=== PATIENT | female | born 1950 | race Caucasian/White ===

== ENCOUNTER 2019-12-29 09:41 | Outpatient (CLI) | payer MEDICARE, SELFPAY ==
--- NOTE | ~2019-12-29 | NM_ITS ---
EXAMINATION: NM bony stress w perfusion DATE: 12/29/2019 13:06 INDICATION: Hyperlipidemia and hypertension for preoperative evaluation TECHNIQUE: Rest images were obtained following intravenous administration of 8 mCi Tc99m tetrofosmin (Myoview). The patient was infused intravenously with Lexiscan (Regadenoson). Then, 25.6 mCi Tc99m te trofosmin (Myoview) was administered intravenously, and stress images were obtained. Data was reconst ructed into short axis and horizontal and vertical long axis SPECT images. Gated SPECT images were al so obtained. COMPARISON: None. FINDINGS: There is no definite reversible or fixed perfusion abnormality to suggest ischemia or infar ction. There is normal left ventricular chamber size, wall motion and ejection fraction. Left ventr icular ejection fraction measures >70%. IMPRESSION: 1. Normal myocardial perfusion at rest and during stress. 2. Left ventricular ejection fraction measuring >70%. Reviewed, dictated and finalized at location A.
--- NOTE | 2019-12-29 10:29 | EST_ITS ---
Patient Info Name: Kelsey Ashford Age: 69 years : 1950 Gender: Female Ht: 66 in Wt: 180 lbs BSA: 1.97 m2 Exam Date: 12/29/2019 11:04 AM Exam Location: [facility] Stress Patient Status: Outpatient Admit Date: 12/29/2019 Staff Ordering Physician: Nelly Rivera NP Attending Provider: Nelly Rivera NP Exercise Technologist: Jovita Manzano RDCS Exercise Physician: Clyde Rojas DO Exam Type: CA stress bony w NM Study Info Indications Z01.818 - Encounter for other preprocedural examination A regadenoson stress test was performed. Summary 1. 1. Abnormal lexiscan stress test for ischemic ST changes by ECG criteria. 2. 2. Baseline hypertension. 3. 3. Nuclear scan to follow and will be reporrted separately. Please correlate with it. 4. 4. Patient informed of the above results. Protocol: Lexiscan Stress ECG Details Stage: REST Duration (min): 7 min : 47 sec HR (bpm): 66 SBP (mmHg): 181 DBP (mmHg): 103 Stage: REST Duration (min): 13 min : 3 sec HR (bpm): 69 SBP (mmHg): 181 DBP (mmHg): 103 Stage: STAGE 1 Duration (min): 0 min : 59 sec HR (bpm): 88 SBP (mmHg): 167 DBP (mmHg): 90 Stage: RECOVERY Duration (min): 1 min : 0 sec HR (bpm): 103 SBP (mmHg): 165 DBP (mmHg): 93 Stage: RECOVERY Duration (min): 2 min : 0 sec HR (bpm): 97 SBP (mmHg): 165 DBP (mmHg): 93 Stage: RECOVERY Duration (min): 3 min : 0 sec HR (bpm): 93 SBP (mmHg): 172 DBP (mmHg): 94 Stage: RECOVERY Duration (min): 3 min : 23 sec HR (bpm): 87 SBP (mmHg): 172 DBP (mmHg): 94 Rest HR: 69 bpm Peak HR: 107 bpm Rest Sys BP: 181 mmHg Peak Sys BP: 172 mmHg Max Pred HR: 149 bpm % Max Pred HR: 72 % Target HR: 127 bpm Max RPP: 18,404 bpm*mmHg Termination Reason: Completed protocol Cardiac Symptoms: Chest discomfort Total Time: 1 min : 0 sec Rest Read BP: 103 mmHg Peak Read BP: 94 mmHg Total Dose: 0.4 mg Resting ECG Sinus rhythm. Stress ECG [address]-T wave depression in II, III, avF. Arrhythmias None. Report Signatures
== END 2019-12-29 09:42 | disposition home or self-care (01) ==
PROVIDERS: PCP Nurse Practitioner; Visit Provider Nurse Practitioner
DX: Z01.810 Encounter for preprocedural cardiovascular examination (principal); I10 Essential (primary) hypertension; E78.5 Hyperlipidemia, unspecified; R94.39 Abnormal result of other cardiovascular function study
CPT/HCPCS: 78452; 93017; A9502; J2785

== ENCOUNTER 2020-01-28 10:30 | Outpatient (CLI) | payer MEDICARE, SELFPAY ==
--- NOTE | ~2020-01-28 | US_ITS ---
EXAMINATION: US venous doppler LE RT DATE: 01/28/2020 11:10 INDICATION: Right lower limb swelling post recent hip surgery. TECHNIQUE: Grayscale ultrasound images without and with compression and Doppler ultrasound images of the right lower extremity veins were obtained. COMPARISON: None. FINDINGS: The visualized portions of right common femoral vein, profunda (deep) femoral vein, femoral vein, pop liteal vein, peroneal trunk, posterior tibial veins, peroneal veins, gastrocnemius vein and greater s aphenous vein outflow are patent. IMPRESSION: 1. No deep venous thrombosis in the right lower limb. Reviewed, dictated and finalized at location B.
== END 2020-01-28 10:31 | disposition home or self-care (01) ==
PROVIDERS: PCP Nurse Practitioner; Visit Provider Orthopaedic Surgery
DX: M79.89 Other specified soft tissue disorders (principal)
CPT/HCPCS: 93971

== ENCOUNTER → 2023-02-20 11:45 | Outpatient (CLI) | payer MEDICARE, SELFPAY ==
--- NOTE | ~2023-02-20 | XR_ITS ---
EXAMINATION: XR lumbar spine 2-3V DATE: 02/20/2023 11:56 INDICATION: Low back pain TECHNIQUE: Anteroposterior and lateral views of the lumbar spine, and cone-down lateral view of the l umbosacral junction were obtained. COMPARISON: 11/24/2016 FINDINGS: There is a chronic L1 compression fracture without significant change. The vertebral body h eights are otherwise maintained. There is severe loss of intervertebral disc space height at L3-4 and moderate loss of disc space height at L4-5 and L5-S1. There is moderate facet joint osteoarthritis o f the lower lumbar spine. Changes of total right hip arthroplasty are noted. There is mild osteoarthr itis of the left hip. Small degenerative osteophytes project from the anterior endplates of multiple vertebral bodies. IMPRESSION: 1. Chronic L1 compression fracture and moderate lumbar spondylosis without acute findings or signific ant interval change. Reviewed, dictated and finalized at location F. IMPRESSION: 1. Chronic L1 compression fracture and moderate lumbar spondylosis without acut e findings or significant interval change.
== END ==
PROVIDERS: PCP Nurse Practitioner Family; Visit Provider Nurse Practitioner Family
DX: M47.896 Other spondylosis, lumbar region (principal); S32.010D Wedge compression fracture of first lumbar vertebra, subsequent encounter for fracture with routine healing; X58.XXXD Exposure to other specified factors, subsequent encounter
CPT/HCPCS: 72100

== ENCOUNTER 2023-04-03 11:15 | Outpatient (RCR) | payer MEDICARE, SELFPAY ==
--- NOTE | 2023-03-13 11:59 | OPREHPOC ---
Outpatient Therapy Plan of Care This is a Multidisciplinary Plan of Care that may contain components documented by all disciplines (PT, OT, and ST.) PT Problem 1 PT Problem #1 Knowledge Deficit PT Goal 1 Goal Pt to be IND with issued HEP Target Visit 4 PT Problem 2 PT Problem #2 Pain PT Goal 1 Goal Pt to continue to report pain no greater than 3/10 in the last week Target Visit 4 PT Problem 3 PT Problem #3 Impaired Range of Motion PT Goal 1 Goal Pt to demonstrate passive hip extension ROM to 20 deg gretchen Target Visit 4 PT Problem 4 PT Problem #4 Impaired Functional Mobil PT Goal 1 Goal Pt to demonstrate a functional lift and carry with 20lb without deviations. Target Visit 4 PT Goal 2 Goal Pt to report being able to stand for 1 hour prior to needing to sit. Target Visit 4
--- NOTE | 2023-03-13 11:59 | PTOPEVAL1 ---
Assessment and note entered by Karli Dickinson, PT, DPT Evaluation Information Assessment Status Evaluation Diagnosis low back pain Subjective Information Pt states she has back pain that increases when she has been walking or standing for an increased period of time. She states her pain has improved in the last 1-2 weeks. She states she did a lot of walking d/t having family in town. Pt states she can stand for no longer than 30 mins, and walk no longer than 15 mins prior to needing to sit. Reported Pain Level Pain Score 0: Self Report Assessment PT Clinical Summary Kelsey presents to therapy today for her initial evaluation with a diagnosis of low back pain. Today she demonstrates active trunk ROM that is pain free and WNL. She does demonstrate core weakness, an anteriorly tilted pelvis in standing, and tight hip flexors. She ambulates with a good speed and free of deviations. Skilled therapy services are indicated to improve body mechanics with functional movements, improve core and hip strength, improve standing posture, and to return to PLOF without limitations. Plan of Care Interventions Gait Training,Hot Pack/Cold Pack,Manual Therapy, Neuro Re-education,Patient/Caregiver Educati, Therapeutic Activities,Therapeutic Exercise PT Services Indicated Yes Treatment Frequency and 1x/wk for 4 visits Duration These treatments will address the objective and functional deficits as defined above. The patient will be advanced safely and appropriately in order for the patient to progress towards his/her prior level of function. Additional exercises will be introduced and as well as a comprehensive home exercise program upon discharge, if needed, ?to ensure carryover of functional gains achieved in the clinic. This treatment plan has been reviewed and agreement upon by the patient.
--- NOTE | 2023-03-21 13:40 | PCPTNOTE ---
Patient no showed to appointment this date. Called and left voicemail.
--- NOTE | 2023-03-27 11:04 | PCPTNOTE ---
Patient no showed to appointment this date. Call and left voicemail.
--- NOTE | 2023-04-10 10:38 | PCPTNOTE ---
Patient did not show up for scheduled appointment this date. This was her last scheduled visit. Called and left voicemail for pt to follow up within a week if she needs to reschedule, if we have not heard from her she will be discharged.
--- NOTE | 2023-04-25 08:15 | PTOPDC ---
Assessment and note entered by Karli Dickinson, PT, DPT Evaluation Information Assessment Status Discharge - Pt Not Present Diagnosis low back pain Subjective Information Pt did not show up to scheduled re-evaluation on 04/10/23. Called and LVM at that time for her to follow up if needed and we have not heard from her since. Assessment PT Clinical Summary Pt attended 2 visits and no showed 3 visits from 03/13/23 to 04/10/23. She will be discharged at this time per the attendance policy.
== END 2023-04-25 08:53 | disposition home or self-care (01) ==
LOC: ANHGOSHPT 11:15
PROVIDERS: PCP Nurse Practitioner Family; Visit Provider Nurse Practitioner Family
DX: M54.50 Low back pain, unspecified (principal)
CPT/HCPCS: 97110; 97112; 97161; 97530; 99199

== ENCOUNTER 2023-04-17 11:11 | Emergency (ER) | payer MEDICARE, SELFPAY ==
--- NOTE | ~2023-04-17 | XR_ITS ---
EXAMINATION: XR chest 1V portable INDICATION: Cough TECHNIQUE: Portable AP chest at 1255 hours COMPARISON: 10/29/2013 FINDINGS: There is mild elevation of the right hemidiaphragm. The lungs are free of acute opacities. No pleural effusion or pneumothorax. The cardiomediastinal silhouette is normal. An electronic device projects over the left midlung zone. There is moderate osteoarthritis of the shoulders. IMPRESSION: 1. No acute cardiopulmonary abnormality. Reviewed, dictated and finalized at location F. R [employer]
[2023-04-17 11:18] VITALS: BP 115/81; PULSE 109; RESP 21; TEMP 36.7; O2SAT 94
[2023-04-17 12:07] LABS: Influenza A QL RT-PCR Negative (Negative); Influenza B QL RT-PCR Negative (Negative); RSV RNA, RT-PCR Negative (Negative); SARS-CoV-2 RNA PCR Positive (Negative)
[2023-04-17 12:18] VITALS: BP 120/81; RESP 19; O2SAT 95
[2023-04-17 12:19] VITALS: O2SAT 94
--- NOTE | 2023-04-17 12:28 | ED.URI ---
HPI - URI/Sore Throat General Chief Complaint: Upper Respiratory Infection Stated Complaint: cough Time Seen by Provider: 04/17/23 12:23 Source: patient Mode of arrival: ambulatory Limitations: no limitations History of Present Illness HPI Narrative: 72 years old white female came from home by private car complaining of coughing for the last 2 days. She denies any fever, chills, nausea, vomiting, chest pain, shortness of breath. Related Data Allergies Allergy/AdvReac Type Severity Reaction Status Date / Time butalbital Allergy Unknown unknown Verified 04/17/23 11:21 tetracycline Allergy Unknown Unknown Verified 04/17/23 11:21 Review of Systems Review of Systems: All systems reviewed & are unremarkable except as noted in HPI and below PMFSH Past Medical History Medical History Chronic diarrhea Depression Essential (primary) hypertension (~2017) Herniated disc (~1989) History of kidney stones (~2014) Hyperlipidemia (~2013) Insomnia Irritable bowel syndrome with diarrhea (~2008) Migraine (~1977) Prediabetes Surgical History Surgical History History of colonoscopy (~10/17/13) History of lithotripsy (~2013) History of right hip replacement (~02/2020) Dr Yazmin Pina [facility] History of tubal ligation (~1983) Family History Family History Father Family history of cardiovascular disease Mother Family history of cardiovascular disease Social History Social History Social History: Patient is , she lives in her own home in [place]. She has 2 children that live in [place] and [place]. Retired from [employer]. Smoking status: Never smoker Second hand tobacco smoke exposure: No Alcohol intake: never Substance use: never Substance use type: does not use Lack of Transportation: No Lack of Food: Never True Current Housing: I Have Housing Concerned About Future Housing: No Difficulty Paying Gas/Electric Bills: No Difficulty Paying for Meds: No Currently Unemployed: No Education: Master's Degree or Higher Difficulty w/ Childcare or Family Care: No Living arrangements: alone Occupation/Education: retired Gender identity (if verbalized by the patient): Female Spiritual care concerns: No Agree to blood products: Yes Exam Narrative: General appearance: Well-developed, well-nourished Skin: Normal color Head: Normocephalic, nontraumatic Eyes: Clear conjunctiva ENT: Oropharyngeal erythema Neck: Supple, nontender Chest and respiratory: Airway patent, no respiratory distress, no accessory muscle use Heart: Regular rate/rhythm Abdomen: Soft, nontender, no organomegaly, quiet bowel sounds Vascular: Normal peripheral pulses, normal capillary refill. Musculoskeletal: Normal range of motion, nontender back Neurologic: Alert and oriented ?3, [employer] is normal as tested, no gross motor deficit Course Reevaluation(s) Reevaluation #1: No new changes compared to arrival to the emergency room Date: 04/17/23 Time: 13:46 Vital Signs Vital signs: Vital Signs Temperature 36.7 C 04/17/23 11:18 Pulse Rate 109 H 04/17/23 11:18 Respiratory Rate 21 H 04/17/23 11:18 Blood Pressure 115/81 04/17/23 11:18 Pulse Oximetry 94 04/17/23 11:18 Oxygen Delivery Room Air 04/17/23 11:18 Temperature 36.7 C 04/17/23 11:18 Pulse Rate 109 H 04/17/23 11:18 Respiratory Rate 21 H 04/17/23 11:18 Blood Pressure 115/81 04/17/23 11:18 Pulse Oximetry 94 04/17/23 11:18 Oxygen Delivery Room Air
[2023-04-17 12:46] VITALS: BP 116/80; O2SAT 96
[2023-04-17 13:01] VITALS: BP 127/91
[2023-04-17 13:16] VITALS: BP 128/88; PULSE 80; RESP 18; TEMP 36.2; O2SAT 95
== END 2023-04-17 13:50 | disposition home or self-care (01) ==
PROVIDERS: Emergency Medicine; Emergency Provider Emergency Medicine; PCP Nurse Practitioner Family
DX: U07.1 COVID-19 (principal); I10 Essential (primary) hypertension; E78.5 Hyperlipidemia, unspecified; K58.0 Irritable bowel syndrome with diarrhea; R73.03 Prediabetes; Z96.641 Presence of right artificial hip joint; Z87.442 Personal history of urinary calculi; Z79.82 Long term (current) use of aspirin; Z79.84 Long term (current) use of oral hypoglycemic drugs
CPT/HCPCS: 71045; 87637; 99283